=== PATIENT | female | born 1935 | race Caucasian/White ===

== ENCOUNTER 2023-06-14 23:26 | Emergency (ER) | payer MEDICARE, OTHER ==
[2023-06-14 23:57] LABS: BASOPHILS # (AUTO) 0.04 K/uL (0.00-0.20); BASOPHILS % (AUTO) 0.6 % (0.0-5.0); EOSINOPHILS # (AUTO) 0.04 K/uL (0.00-0.70); EOSINOPHILS % (AUTO) 0.6 % (0.0-8.0); HEMATOCRIT 36.1 % (36-48); IMMATURE GRANULOCYTE ABSOLUTE 0.02 K/uL (0-1); LYMPHOCYTES # (AUTO) 1.5 K/uL (1.0-4.8); LYMPHOCYTES % (AUTO) 21.1 % (21.0-51.0); MEAN CORPUSCULAR HEMOGLOBIN 30.2 pg (27.0-33.0); MEAN CORPUSCULAR HGB CONC 34.3 g/dL (32.0-36.0); MEAN CORPUSCULAR VOLUME 87.8 fL (79-99); MONOCYTES # (AUTO) 0.4 K/uL (0.1-1.0); MONOCYTES % (AUTO) 5.5 % (3.0-13.0); NEUTROPHILS # (AUTO) 5.2 K/uL (1.8-7.7); NEUTROPHILS % (AUTO) 71.9 % (40.0-77.0); PLATELET COUNT (AUTO) 234 K/uL (130-400); RED BLOOD CELL COUNT(AUTO) 4.11 MIL/uL (4.00-5.50); RED CELL DISTRIBUTION WIDTH 13.9 % (11.0-15.5); WHITE BLOOD COUNT (AUTO) 7.2 K/uL (4.8-10.8)
[2023-06-15 00:10] LABS: CREATININE 0.9 mg/dL (0.5-1.0); POTASSIUM 3.8 mmol/L (3.5-5.1)
[2023-06-15 00:12] LABS: INR <= 0.93 (0.85-1.15); PROTHROMBIN TIME 10.8 SEC (9.6-11.6)
[2023-06-15 00:14] LABS: ALBUMIN 3.4 g/dL (3.5-5.0); BILIRUBIN,TOTAL 0.7 mg/dL (0.2-1.0); MAGNESIUM 1.9 mg/dL (1.80-2.40); TOTAL PROTEIN, SERUM 6.8 g/dL (6.0-8.3)
[2023-06-15 00:30] LABS: B-TYPE NATRIURETIC PEPTIDE 123 pg/mL (0-100)
[2023-06-15] MEDS: PANTOPRAZOLE 40 MG/VIAL IVP ONE (01:50)
[2023-06-15] MEDS: ONDANSETRON 4MG INJ IVP ONE (01:50)
[2023-06-15 02:10] VITALS: O2SAT 97
[2023-06-15] MEDS ORDERED: PANT40TA55 PO (02:20)
[2023-06-15 03:08] VITALS: BP 135/55; PULSE 55; RESP 18
== END 2023-06-15 03:48 | disposition home or self-care (01) ==
LOC: EDH 23:26
DX: K29.70 Gastritis, unspecified, without bleeding (principal); E03.9 Hypothyroidism, unspecified
CPT/HCPCS: 99285; 71045; 82550; 83735; 84484 ×3; 80053; 83880; 85025; 85610; 85730; 36415 ×2; 93005; 96374; 96375; J2405; C9113